=== PATIENT | female | born 1970 | race Caucasian/White ===

== ENCOUNTER 2016-06-25 05:23 | Inpatient (IN) | payer OTHER ==
[2016-06-25] VITALS (37 sets, daily range): BP systolic 79–136; BP diastolic 42–83; PULSE 80–108; RESP 14–33; TEMP 94.7–98.5; O2SAT 80–100
[~2016-06-25] VITALS: Ht 167.6 cm; Wt 59.8 kg
[~2016-06-25 05:23] MED LIST: ALBU0.086 NEB; ATOR10TA PO; BIOT10004 PO; CETI10 PO; FLUO20TA20 PO; KLOR8TAB PO; LORA2TAB PO; METO25 PO; NAPR-576 PO; PROT40TA PO; SYMB80AE INH; SYNT50TA PO; ZOLP10TA3 PO
[2016-06-25] MEDS ORDERED: SODIUM CHLORIDE 0.9% FLUSH 5 ML FLUSH IVF PRN (05:45)
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
[2016-06-25 06:05] LABS: AUTOMATED NEUTROPHIL # 6.8 TH/MM3 (1.8-7.7); BASOPHIL # 0.1 TH/MM3 (0-0.2); BASOPHIL % 1.1 % (0.0-2.0); EOSINOPHIL # 0.1 TH/MM3 (0-0.4); HEMATOCRIT 39.7 % (35.0-46.0); HEMO FLAGS DIFF FINAL; LYMPH % 21.2 % (9.0-44.0); LYMPHOCYTE # 2.1 TH/MM3 (1.0-4.8); MEAN CELL VOLUME 92.6 FL (80.0-100.0); MEAN CORPUSCULAR HEMOGLOBIN 31.2 PG (27.0-34.0); MEAN CORPUSCULAR HGB CONC 33.7 % (32.0-36.0); MONO % 6.2 % (0.0-8.0); NEUT % 70.5 % (16.0-70.0); PLATELET COUNT 246 TH/MM3 (150-450); RED BLOOD COUNT 4.29 MIL/MM3 (4.00-5.30); RED CELL DISTRIBUTION WIDTH 13.2 % (11.6-17.2); WHITE BLOOD COUNT 9.7 TH/MM3 (4.0-11.0)
[2016-06-25 06:07] LABS: BLOOD, URINE TRACE (NEG); GLUCOSE,URINE NEG (NEG); KETONE, URINE NEG (NEG); NITRITE,URINE NEG (NEG)
[2016-06-25 06:18] LABS: AMPHETAMINE, URINE NEG (NEG)
[2016-06-25 06:20] LABS: BARBITURATES, URINE NEG (NEG)
[2016-06-25 06:22] LABS: COCAINE, URINE NEG (NEG)
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
[2016-06-25 06:28] LABS: METHOD OF COLLECTION CLEAN CATCH; URINE COLOR STRAW (YELLW/STRAW)
[2016-06-25 06:29] LABS: COMMENT (UR) CULT NOT INDICATED; CULTURE IF INDICATED CULT NOT INDICATED; SQUAMOUS EPITHELIAL CELL URINE 0-5 /hpf (0-5)
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
[2016-06-25 06:37] LABS: ALKALINE PHOSPHATASE 87 U/L (45-117); ALT (GPT) 27 U/L (10-53); ANION GAP 12 MEQ/L (5-15); AST (GOT) 36 U/L (15-37); BETA HCG QUANT 2 MIU/ML (0-5); BICARBONATE 22.9 MEQ/L (21.0-32.0); BLOOD UREA NITROGEN 4 MG/DL (7-18); CHLORIDE 104 MEQ/L (98-107); GLOMERULAR FILTRATION RATE 88 ML/MIN (>89); MAGNESIUM 5.4 MG/DL (1.5-2.5); SODIUM (NA) 139 MEQ/L (136-145); TOTAL BILIRUBIN ADULT 0.4 MG/DL (0.2-1.0)
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
[2016-06-25 06:45] LABS: POTASSIUM 2.9 MEQ/L (3.5-5.1)
[2016-06-25 07:15] LABS: BLOOD GAS BASE EXCESS -5.3 mmol/L (-2-2); BLOOD GAS CARBOXYHEMOGLOBIN 1.3 % (0-4); BLOOD GAS HCO3 20 mmol/L (22-26); BLOOD GAS METHEMOGLOBIN 1.1 % (0-2); BLOOD GAS O2 HGB SATURATION 86 % (90-100); BLOOD GAS OXYGEN CONTENT 15.3 Vol % (12.0-20.0); BLOOD GAS PCO2 43 mmHG (38-42); BLOOD GAS PO2 64 mmHG (61-120); BLOOD GAS TOTAL HGB 12.7 G/DL (12.0-16.0); TEMP CORR TO 98.6
[2016-06-25 07:16] LABS: CRITICAL VALUE YES; DRAW SITE LT RADIAL; LITER FLOW 6 L/M; NUMBER OF ARTERIAL PUNCTURES 1; OXYGEN DEVICE NASAL CANNULA; STAT YES; ULNAR PULSE PRESENT
[2016-06-25] MEDS: NS + KCL 40 MEQ INJ 1,000 ML IV SCH ×2 (07:46→15:15)
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
[2016-06-25] MEDS ORDERED: MAGNESIUM HYDROXIDE SUSP 30 ML CUP PO PRN (09:45)
[2016-06-25] MEDS ORDERED: MISCELLANEOUS NURSING INFORMATION XX SCH (09:45)
[2016-06-25] MEDS ORDERED: SODIUM CHLORIDE 0.9% FLUSH 5 ML FLUSH IV FLUSH PRN (09:45)
[2016-06-25] MEDS ORDERED: RESP: ALBUTEROL 2.5 MG/IPRATROPIUM 0.5 MG NEB (PRN) INH (09:45)
[2016-06-25] MEDS ORDERED: POTASSIUM CHLOR 40 MEQ PREMIX 100 ML IV PRN ×2 (09:45)
[2016-06-25] MEDS ORDERED: POTASSIUM PHOSPHATE MONOBASIC 500 MG TAB PO PRN (09:45)
[2016-06-25] MEDS ORDERED: SODIUM PHOSPHATE INJ 30 MMOL in SODIUM CHLOR 0.9% 250 ML INJ 240 ML IV PRN (09:45)
[2016-06-25] MEDS ORDERED: CHLORHEXIDINE GLUCONATE 2 % 1 PACK (2 CLOTHS) TOP PRN (09:45)
[2016-06-25] MEDS ORDERED: POTASSIUM CHLOR 20 MEQ PREMIX 100 ML IV PRN ×2 (09:45)
[2016-06-25] MEDS ORDERED: ONDANSETRON HCL 4 MG/2 ML VIAL IV PRN (09:45)
[2016-06-25] MEDS ORDERED: LORazepam 2 MG/ML VIAL IV PRN (09:45)
[2016-06-25] MEDS ORDERED: MAGNESIUM SULFATE INJ 2 GM in SODIUM CHLORIDE 0.9% INJ 96 ML IV PRN (09:45)
[2016-06-25] MEDS ORDERED: POTASSIUM PHOSPHATE MONOBASIC 500 MG TAB PO/TUBE PRN (09:45)
[2016-06-25] MEDS ORDERED: MAGNESIUM SULFATE INJ 4 GM in SODIUM CHLORIDE 0.9% INJ 92 ML IV PRN (09:45)
[2016-06-25] MEDS ORDERED: POTASSIUM PHOSPHATE INJ 30 MMOL in SODIUM CHLOR 0.9% 250 ML INJ 250 ML IV PRN (09:45)
[2016-06-25] MEDS ORDERED: MAGNESIUM OXIDE 400 MG TAB PO PRN (09:45)
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
[2016-06-25] MEDS: RESP: ALBUTEROL 2.5 MG/IPRATROPIUM 0.5 MG NEB (SCH) INH ×3 (11:19→22:04)
[2016-06-25] MEDS: PANTOPRAZOLE SOD 40 MG DELAYED RELEASE TAB PO SCH (12:11)
[2016-06-25] MEDS: PIPERACIL-TAZO 4.5 GM PREMIX 100 ML IV SCH ×2 (12:11→18:00)
[2016-06-25 12:38] LABS: BICARBONATE 23.5 MEQ/L (21.0-32.0); POTASSIUM 3.7 MEQ/L (3.5-5.1)
[2016-06-25 13:23] LABS: HEMOGLOBIN A1b 0.7 %; HEMOGLOBIN Ao 87.4 %; HEMOGLOBIN F 0.8 %; HEMOGLOBIN LA1C 1.8 %
--- NOTE | 2016-06-25 14:22 | EKG ---
Date Performed: 06/25/2016 Time Performed: 07:06:16 PTAGE: 45 years EKG: Sinus rhythm with borderline 1st degree A-V block Consider left atrial abnormality Anterolateral ST-T changes are nonspecific Borderline ECG NO PREVIOUS TRACING DOCTOR: Jean Ibrahim Interpretating Date/Time 06/25/2016 14:19:46
[2016-06-25 14:53] LABS: BLOOD GAS CARBOXYHEMOGLOBIN 1.1 % (0-4); BLOOD GAS HCO3 22 mmol/L (22-26); BLOOD GAS METHEMOGLOBIN 0.6 % (0-2); BLOOD GAS OXYGEN CONTENT 15.7 Vol % (12.0-20.0); BLOOD GAS PCO2 32 mmHg (38-42); BLOOD GAS PO2 75 mmHg (61-120); BLOOD GAS TOTAL HGB 11.7 G/DL (12.0-16.0); CRITICAL VALUE NO; OXYGEN DEVICE NASAL CANNULA
[2016-06-25 14:54] LABS: BLOOD GAS O2 HGB SATURATION 95 % (90-100); DRAW SITE LT RADIAL; LITER FLOW 4 L/M; NUMBER OF ARTERIAL PUNCTURES 1; STAT NO; ULNAR PULSE PRESENT
[2016-06-25] MEDS ORDERED: DEXTROSE 50% IN WATER 50 ML VIAL(D50) IV PUSH PRN (17:00)
[2016-06-25] MEDS ORDERED: INSULIN NovoLIN REGULAR SUPPLEMENTAL SCALE SQ SCH (17:00)
[2016-06-25] MEDS ORDERED: GLUCAGON 1 MG/ML VIAL OTHER PRN (17:00)
[2016-06-25] MEDS: SODIUM CHLOR 0.9% 1000 ML INJ 1,000 ML IV SCH (18:00)
[2016-06-25] MEDS: MULTIVITAMIN TAB PO SCH (18:00)
[2016-06-25] MEDS: FOLIC ACID 1 MG TAB PO SCH (18:00)
[2016-06-25] MEDS: INSULIN NovoLIN REGULAR SUPPLEMENTAL SCALE SQ SCH ×2 (18:00→19:03)
[2016-06-25] MEDS: THIAMINE HCL 100 MG TAB PO SCH (18:00)
[2016-06-25] MEDS ORDERED: LEVO.075 PO (19:46)
[2016-06-25] MEDS ORDERED: METO50TA11 PO (19:46)
[2016-06-25] MEDS ORDERED: LEVO.05 PO (19:46)
[2016-06-25] MEDS: SODIUM CHLORIDE 0.9% FLUSH 5 ML FLUSH IV FLUSH SCH (20:17)
[2016-06-25] MEDS ORDERED: DIPH1TAB36 (20:26)
[2016-06-25] MEDS ORDERED: AMBI10TA PO (20:26)
[2016-06-25] MEDS ORDERED: SODIUM CHLORID 0.9% 500 ML INJ 500 ML IV ONE (22:45)
[2016-06-26] VITALS (20 sets, daily range): BP systolic 81–129; BP diastolic 42–92; PULSE 80–116; RESP 16–28; TEMP 97.3–98.7; O2SAT 93–100
[2016-06-26] MEDS: PIPERACIL-TAZO 4.5 GM PREMIX 100 ML IV SCH ×2 (00:27→06:32)
[2016-06-26] MEDS: SODIUM CHLOR 0.9% 1000 ML INJ 1,000 ML IV SCH (03:14)
[2016-06-26] MEDS: CHLORHEXIDINE GLUCONATE 2 % 1 PACK (2 CLOTHS) TOP SCH (03:14)
[2016-06-26] MEDS: RESP: ALBUTEROL 2.5 MG/IPRATROPIUM 0.5 MG NEB (SCH) INH ×2 (04:09→10:15)
[2016-06-26 05:19] LABS: BASOPHIL # 0.1 TH/MM3 (0-0.2); BASOPHIL % 0.7 % (0.0-2.0); EOSINOPHIL % 0.1 % (0.0-4.0); HEMATOCRIT 31.5 % (35.0-46.0); HEMO FLAGS DIFF FINAL; LYMPH % 13.1 % (9.0-44.0); LYMPHOCYTE # 1.5 TH/MM3 (1.0-4.8); MEAN CELL VOLUME 92.8 FL (80.0-100.0); MEAN CORPUSCULAR HEMOGLOBIN 31.2 PG (27.0-34.0); MEAN CORPUSCULAR HGB CONC 33.7 % (32.0-36.0); MONO % 5.5 % (0.0-8.0); NEUT % 80.6 % (16.0-70.0); PLATELET COUNT 166 TH/MM3 (150-450); RED CELL DISTRIBUTION WIDTH 13.5 % (11.6-17.2); WHITE BLOOD COUNT 11.2 TH/MM3 (4.0-11.0)
[2016-06-26 05:29] LABS: CHLORIDE 107 MEQ/L (98-107); POTASSIUM 3.2 MEQ/L (3.5-5.1); SODIUM (NA) 142 MEQ/L (136-145)
[2016-06-26 05:37] LABS: ALT (GPT) 22 U/L (10-53); ANION GAP 12 MEQ/L (5-15); AST (GOT) 27 U/L (15-37); BICARBONATE 22.8 MEQ/L (21.0-32.0); BLOOD UREA NITROGEN 8 MG/DL (7-18); GLOMERULAR FILTRATION RATE 84 ML/MIN (>89); MAGNESIUM 2.3 MG/DL (1.5-2.5)
[2016-06-26 05:38] LABS: TOTAL BILIRUBIN ADULT 0.8 MG/DL (0.2-1.0)
[2016-06-26 05:51] LABS: ALKALINE PHOSPHATASE 61 U/L (45-117)
[2016-06-26] MEDS: INSULIN NovoLIN REGULAR SUPPLEMENTAL SCALE SQ SCH ×3 (05:57→17:58)
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
[2016-06-26] MEDS ORDERED: POTASSIUM CHLORIDE 10 MEQ CONTROLLED RELEASE TAB PO ONE (07:45)
[2016-06-26] MEDS ORDERED: ZOLPIDEM TARTRATE 10 MG TAB PO PRN (08:30)
[2016-06-26] MEDS: SODIUM CHLORIDE 0.9% FLUSH 5 ML FLUSH IV FLUSH SCH ×2 (09:00→21:18)
[2016-06-26] MEDS ORDERED: LEVOTHYROXINE SODIUM 50 MCG TAB PO SCH (09:00)
[2016-06-26] MEDS: PANTOPRAZOLE SOD 40 MG DELAYED RELEASE TAB PO SCH (09:42)
[2016-06-26] MEDS: FOLIC ACID 1 MG TAB PO SCH (09:42)
[2016-06-26] MEDS: MULTIVITAMIN TAB PO SCH (09:42)
[2016-06-26] MEDS: CLINDAMYCIN 150 MG CAP PO SCH ×3 (09:42→21:18)
[2016-06-26] MEDS: THIAMINE HCL 100 MG TAB PO SCH (09:42)
[2016-06-26] MEDS: FLUoxetine HCL 20 MG CAP PO SCH ×2 (09:42→21:18)
[2016-06-26] MEDS: ACETAMINOPHEN 325 MG TAB PO PRN ×2 (10:01→18:01)
[2016-06-26] MEDS ORDERED: PANT40TA3 PO (14:48)
[2016-06-26] MEDS ORDERED: SYMB80AE INH (14:55)
[2016-06-26] MEDS ORDERED: FLUO40CA PO (14:55)
[2016-06-26] MEDS ORDERED: methylPREDNISolone SOD SUCC 40 MG/1 ML VIAL IV ONE (15:15)
[2016-06-26] MEDS ORDERED: ALBUTEROL SULFATE 90 MCG/ACT HFA 8 GM INHALER INH PRN (15:15)
[2016-06-26] MEDS: BUDESONIDE-FORMOTEROL 80/4.5 MCG INHALER INH SCH ×2 (16:23→21:18)
[2016-06-27] VITALS: BP 148/88; PULSE 95; RESP 20; TEMP 97.1; O2SAT 100
[2016-06-27] MEDS: ACETAMINOPHEN 325 MG TAB PO PRN ×2 (01:10→08:12)
[2016-06-27] MEDS: CHLORHEXIDINE GLUCONATE 2 % 1 PACK (2 CLOTHS) TOP SCH (03:59)
[2016-06-27 04:00] VITALS: BP 147/98; PULSE 92; RESP 20; TEMP 97.2; O2SAT 98
[2016-06-27] MEDS ORDERED: LEVOTHYROXINE SODIUM 50 MCG TAB PO SCH (06:00)
[2016-06-27] MEDS ORDERED: LEVOTHYROXINE SODIUM 25 MCG TAB PO SCH (06:00)
[2016-06-27] MEDS: INSULIN NovoLIN REGULAR SUPPLEMENTAL SCALE SQ SCH ×2 (06:00)
[2016-06-27] MEDS: CLINDAMYCIN 150 MG CAP PO SCH (06:07)
[2016-06-27 06:57] LABS: AUTOMATED NEUTROPHIL # 7.3 TH/MM3 (1.8-7.7); BASOPHIL % 0.3 % (0.0-2.0); EOSINOPHIL % 0.2 % (0.0-4.0); HEMATOCRIT 34.3 % (35.0-46.0); HEMO FLAGS DIFF FINAL; LYMPHOCYTE # 0.6 TH/MM3 (1.0-4.8); MEAN CELL VOLUME 93.4 FL (80.0-100.0); MEAN CORPUSCULAR HEMOGLOBIN 30.7 PG (27.0-34.0); MEAN CORPUSCULAR HGB CONC 32.9 % (32.0-36.0); MONO % 6.1 % (0.0-8.0); NEUT % 86.4 % (16.0-70.0); PLATELET COUNT 183 TH/MM3 (150-450); RED BLOOD COUNT 3.67 MIL/MM3 (4.00-5.30); RED CELL DISTRIBUTION WIDTH 14.1 % (11.6-17.2); WHITE BLOOD COUNT 8.4 TH/MM3 (4.0-11.0)
[2016-06-27 07:02] LABS: BICARBONATE 24.6 MEQ/L (21.0-32.0)
[2016-06-27 08:00] VITALS: BP 158/91; PULSE 60; RESP 18; TEMP 96.9; O2SAT 100
[2016-06-27] MEDS: BUDESONIDE-FORMOTEROL 80/4.5 MCG INHALER INH SCH (08:11)
[2016-06-27] MEDS: PANTOPRAZOLE SOD 40 MG DELAYED RELEASE TAB PO SCH (08:11)
[2016-06-27] MEDS: THIAMINE HCL 100 MG TAB PO SCH (08:11)
[2016-06-27] MEDS: FLUoxetine HCL 20 MG CAP PO SCH (08:11)
[2016-06-27] MEDS: FOLIC ACID 1 MG TAB PO SCH (08:12)
[2016-06-27] MEDS: MULTIVITAMIN TAB PO SCH (08:12)
[2016-06-27] MEDS: SODIUM CHLORIDE 0.9% FLUSH 5 ML FLUSH IV FLUSH SCH (08:12)
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
[2016-06-27] MEDS ORDERED: METO25TA6 PO (08:26)
[2016-06-27] MEDS ORDERED: CLIN150 PO (08:26)
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
[2016-06-29] MEDS ORDERED: LEVOTHYROXINE SODIUM 75 MCG TAB PO SCH (06:00)
== END 2016-06-27 10:30 | disposition home or self-care (01) | DRG 177 ==
LOC: PHED 05:23 → MERGE 07:13 → PHEDA 07:13 → PHICU 08:29 → PH3B 06-26 19:25
PROVIDERS: ADMIT Family Medicine; ATTEND Family Medicine
PROC: 5A09357 Assistance with Respiratory Ventilation, Less than 24 Consecutive Hours, Continuous Positive Airway Pressure (ICD-10-PCS; principal; 2016-06-25)
DX: J69.0 Pneumonitis due to inhalation of food and vomit (principal); J96.01 Acute respiratory failure with hypoxia; S00.83XA Contusion of other part of head, initial encounter; T75.1XXA Unspecified effects of drowning and nonfatal submersion, initial encounter; W17.4XXA Fall from dock, initial encounter; F10.129 Alcohol abuse with intoxication, unspecified; Y90.7 Blood alcohol level of 200-239 mg/100 ml; D64.9 Anemia, unspecified; I10 Essential (primary) hypertension; E03.9 Hypothyroidism, unspecified; E87.6 Hypokalemia; R41.82 Altered mental status, unspecified; R73.9 Hyperglycemia, unspecified
CPT/HCPCS: 36600; 51702; 70450; 71010; 71020; 72125; 80048; 80053; 80307; 81001; 82805; 82948; 83036; 83735; 83880; 84100; 84443; 84702; 85025; 87641; 93005; 94002; 94150; 94640; 94664; J2543; J2920; J3480; J7030; J7040

== ENCOUNTER 2018-05-30 19:09 | Observation (INO) ==
--- NOTE | 2018-05-30 19:39 | ED ---
HPI General Chief complaint: Chest Pain Stated complaint: Chest Pain/Raidiating to Back/Weak Time Seen by Provider: 05/30/18 19:22 Source: patient and family () Mode of arrival: ambulatory Limitations: no limitations History of Present Illness HPI narrative: 47-year-old female with history of hypertension, hyperlipidemia, anxiety, hypothyroidism, here with her for evaluation of chest pain. Pain started in the patient's right shoulder, then migrated to her left shoulder , then began in her chest. Initially the pain was sharp. It is now described as heavy/pressure-like, 7 out of 10, constant, no modifying factors. Patient reports some numbness sensation to her bilateral hands and feet. She reports that she has not been feeling well for the last 3 days and feels like she may have the flu. She has pain in her throat which is greatest on the left side. She has not noticed a fever. No history of DVT or PE. She has had a nonproductive cough. No hemoptysis. No recent travel or immobilization. No known history of CAD. She is here with her and states that he has several medical conditions that have been causing some stress/anxiety on her. Related Data Home Medications Medication Instructions Recorded Confirmed atorvastatin 05/30/18 levothyroxine [Synthroid] 05/30/18 lorazepam [Ativan] 05/30/18 metoprolol tartrate 05/30/18 pantoprazole 05/30/18 Allergies Allergy/AdvReac Type Severity Reaction Status Date / Time amoxicillin Allergy Severe Hives Verified 05/30/18 19:47 clavulanic acid Allergy Severe Hives Verified 05/30/18 19:47 Review of Systems ROS: all other systems reviewed are negative [facility] Medical History Medical History Anxiety (Acute) High cholesterol (Acute) Hypertension (Acute) Hypothyroidism (Acute) Surgical History Surgical History No history of previous surgery (Acute) Social History Social History Substance History: No History of Abuse Smoking Status: Never smoker How Often Do You Have a Drink Containing Alcohol: Never Recent Travel in [facility] within the Last 8 Weeks: No Recent Out of Country Travel within the Last 8 Weeks: No Exam Narrative Exam Narrative: GENERAL: Well-developed, well-nourished, awake, alert, no apparent distress. SKIN: Focused skin assessment warm/dry. HEAD: Atraumatic. Normocephalic. EYES: Pupils equal and round. No scleral icterus. No injection or drainage. ENT: Mucous membranes pink and moist. Mild pharyngeal edema, no exudates. Uvula is midline. Normal phonation. No drooling or stridor. NECK: Trachea midline. No JVD. CARDIOVASCULAR: Tachycardic, rate 105, regular. Distal pulses brisk and equal bilaterally. RESPIRATORY: No accessory muscle use. Clear to auscultation. Breath sounds equal bilaterally. GASTROINTESTINAL: Abdomen soft, non-tender, nondistended. MUSCULOSKELETAL: No obvious deformities. No clubbing. No cyanosis. No edema. NEUROLOGICAL: Awake and alert. No obvious cranial nerve deficits. Motor grossly within normal limits. Normal speech. PSYCHIATRIC: Appropriate mood and affect; insight and judgment normal. Course Initial Documented Vital Signs Temperature 98.4 F 05/30/18 19:21 Pulse Rate 87 05/30/18 19:21 Respiratory Rate 18 05/30/18 19:21 Blood Pressure 154/81 H 05/30/18 19:21 Pulse Oximetry 100 05/30/18 19:21 Last Documented Vital Signs Temperature 98.4 F 05/30/18 19:21 Pulse Rate 95 H 05/30/18 22:16 Respiratory Rate 18 05/30/18 22:16 Blood Pressure 144/95 H 05/30/18 22:16 Pulse Oximetry 100 05/30/18 22:16 Medical Decision Making [facility] Narrative Medical decision making narrative: Vital signs reviewed. CBC is essentially unremarkable. CMP is remarkable for potassium 3.2, sodium 133. Cardiac enzymes are negative. Lipase is 146. D-dimer is negative at 0.26. Chest x-ray: No acute cardiopulmonary disease. UA shows large leukocyte esterase, 6-8 WBCs per HPF, 0-5 epithelial cells per HPF, negative nitrites, culture not indicated. Culture will be obtained. The patient was made aware of all findings. She was provided a full aspirin. She reports that the chest pressure that she was experiencing improved with sublingual nitroglycerin. Patient's cardiac risk factors include hypertension and hypercholesterolemia. She will be admitted to the chest pain center for further cardiac evaluation. 10:10 PM: I was called to the patient's bedside by the patient's who informed me that the patient's heart was racing. On the monitor it appears that the patient was in atrial flutter at a rate of 125. By the time EKG was performed, the patient's rate had improved. Her blood pressure was 144/95 during this episode and O2 saturation was 100% on room air. Repeat EKG was ordered, however the patient's tachycardia resolved at the time of the EKG. The repeat EKG did have some slight ST depressions in inferior and lateral leads. The patient was made aware of all findings. She will be admitted to the chest pain center for further cardiac evaluation. She is amenable to this plan. Case discussed with hospitalist Dr. Goodwin who will admit the patient to the hospitalist service. Medical Screen Exam Complete: Yes Emergency Medical Condition: Yes Differential Diagnosis Differential Diagnosis: ACS, pneumothorax, pericarditis, PE, pneumonia, dissection, anxiety, influenza, musculoskeletal pain Lab Data Result diagrams: 05/30/18 19:29 05/30/18 19:29 Lab Results 05/30/18 05/30/18 05/30/18 Range/Units 19:29 19:29 19:29 CBC w Diff Auto diff final WBC 7.1 (4.0-11.0) th/mm3 RBC 4.03 (4.00-5.30) mil/mm3 Hgb 12.6 (11.6-15.3) gm/dL Hct 37.7 (35.0-46.0) % MCV 93.4 (80.0-100.0) fL MCH 31.3 (27.0-34.0) pg MCHC 33.5 (32.0-36.0) % RDW 12.9 (11.6-17.2) % Plt Count 225 (150-450) th/mm3 MPV 10.7 (7.0-11.0) fL Neut % (Auto) 59.1 (16.0-70.0) % Lymph % (Auto) 26.1 (9.0-44.0) % Ward % (Auto) 6.5 (0.0-8.0) % Eos % (Auto) 7.5 H (0.0-4.0) % Baso % (Auto) 0.8 (0.0-2.0) % Neut # (Auto) 4.1 (1.8-7.7) th/mm3 Lymph # (Auto) 1.9 (1.0-4.8) th/mm3 Ward # (Auto) 0.5 (0.0-0.9) th/mm3 Eos # (Auto) 0.5 H (0.0-0.4) th/mm3 Baso # (Auto) 0.1 (0.0-0.2) th/mm3 WBC Differential . Differential Comment . PT 10.8 (9.8-11.6) sec INR 1.1 Ratio APTT 29.9 (23.4-31.7) sec D-Dimer Quant (PE/DVT) 0.26 (0.00-0.50) mg/L FEU Sodium 133 L (136-145) meq/L Potassium 3.2 L (3.5-5.1) meq/L Chloride 98 (98-107) meq/L Carbon Dioxide 26.8 (21.0-32.0) meq/L Anion Gap 8 (5-15) meq/L BUN 9 (7-18) mg/dL Creatinine 0.85 (0.50-1.00) mg/dL Estimated GFR 71 L (>89) mL/min Random Glucose 153 H (74-106) mg/dL Calcium 8.5 (8.5-10.1) mg/dL Total Bilirubin 0.5 (0.2-1.0) mg/dL AST 21 (15-37) U/L ALT 21 (10-53) U/L Alkaline Phosphatase 89 (45-117) U/L Total Creatine Kinase 138 (26-192) U/L CK-MB (CK-2) 1.0 (0.5-3.6) ng/mL Troponin I Less than 0.02 L (0.02-0.05) ng/mL Total Protein 7.1 (6.4-8.2) g/dL Albumin 4.0 (3.4-5.0) g/dL Lipase 146 (73-393) U/L Beta HCG, Quant 2 (0-5) mIU/mL Urine Color (Yellw/Straw) Urine Clarity (Clear) Urine pH (5.0-8.5) Ur Specific Superior (1.002-1.035) Urine Protein (Neg-Trace) mg/dL Urine Glucose (UA) (Negative) mg/dL Urine Ketones (Negative) mg/dL Urine Occult Blood (Negative) Urine Nitrate (Negative) Urine Bilirubin (Negative) Urine Urobilinogen (Less than 2) mg/dL Ur Leukocyte Esterase (Negative) Urine WBC (0-5) /hpf Ur Squamous Epith Cells (0-5) /hpf Micro UA Comment Ur Microscopic Review Urine Culture Comments 05/30/18 Range/Units 21:00 CBC w Diff WBC (4.0-11.0) th/mm3 RBC (4.00-5.30) mil/mm3 Hgb (11.6-15.3) gm/dL Hct (35.0-46.0) % MCV (80.0-100.0) fL MCH (27.0-34.0) pg MCHC (32.0-36.0) % RDW (11.6-17.2) % Plt Count (150-450) th/mm3 MPV (7.0-11.0) fL Neut % (Auto) (16.0-70.0) % Lymph % (Auto) (9.0-44.0) % Ward % (Auto) (0.0-8.0) % Eos % (Auto) (0.0-4.0) % Baso % (Auto) (0.0-2.0) % Neut # (Auto) (1.8-7.7) th/mm3 Lymph # (Auto) (1.0-4.8) th/mm3 Ward # (Auto) (0.0-0.9) th/mm3 Eos # (Auto) (0.0-0.4) th/mm3 Baso # (Auto) (0.0-0.2) th/mm3 WBC Differential Differential Comment PT (9.8-11.6) sec INR Ratio APTT (23.4-31.7) sec D-Dimer Quant (PE/DVT) (0.00-0.50) mg/L FEU Sodium (136-145) meq/L Potassium (3.5-5.1) meq/L Chloride (98-107) meq/L Carbon Dioxide (21.0-32.0) meq/L Anion Gap (5-15) meq/L BUN (7-18) mg/dL Creatinine (0.50-1.00) mg/dL Estimated GFR (>89) mL/min Random Glucose (74-106) mg/dL Calcium (8.5-10.1) mg/dL Total Bilirubin (0.2-1.0) mg/dL AST (15-37) U/L ALT (10-53) U/L Alkaline Phosphatase (45-117) U/L Total Creatine Kinase (26-192) U/L CK-MB (CK-2) (0.5-3.6) ng/mL Troponin I (0.02-0.05) ng/mL Total Protein (6.4-8.2) g/dL Albumin (3.4-5.0) g/dL Lipase (73-393) U/L Beta HCG, Quant (0-5) mIU/mL Urine Color Yellow (Yellw/Straw) Urine Clarity Clear (Clear) Urine pH 6.0 (5.0-8.5) Ur Specific Superior Less/equal 1.005 (1.002-1.035) Urine Protein Negative (Neg-Trace) mg/dL Urine Glucose (UA) Negative (Negative) mg/dL Urine Ketones Negative (Negative) mg/dL Urine Occult Blood Negative (Negative) Urine Nitrate Negative (Negative) Urine Bilirubin Negative (Negative) Urine Urobilinogen 0.2 (Less than 2) mg/dL Ur Leukocyte Esterase Large H (Negative) Urine WBC 6-8 H (0-5) /hpf Ur Squamous Epith Cells 0-5 (0-5) /hpf Micro UA Comment Culture not ind Ur Microscopic Review Microscopic reviewed Urine Culture Comments Culture not ind Imaging Data Radiologist's impression: Chest X-Ray 05/30/18 19:32 CONCLUSION: 1. No acute cardiopulmonary disease. ECG Data Attestation: I personally reviewed and interpreted this ECG as follows: (EKG: Sinus, rate 88, normal axis, incomplete RBBB, no acute ischemic abnormality, similar to EKG from 06/25/16) Discharge Plan Discharge Disposition Patient Disposition: ED Admit(ED Internal Use Only) Discharge Condition Condition: Stable Discharge Details Diagnosis: Chest pain, Tachyarrhythmia Physicians Team ED Provider: Ranulfo Pike Primary Care Provider: Dorina Perkins Rxs /Orders / Referrals /Forms Prescriptions: No Action atorvastatin 10 mg Tablet RF: 0 levothyroxine [Synthroid] 25 mcg Tablet RF: 0 lorazepam [Ativan] 0.5 mg Tablet RF: 0 pantoprazole 40 mg Tablet,Delayed Release (Dr/Ec) RF: 0 metoprolol tartrate 25 mg Tablet RF: 0 Discharge Instructions Patient Printed Instructions: Chest Pain (ED) Status ED Status: With Doctor
--- NOTE | 2018-05-30 20:00 | XR ---
EXAM DATE: 05/30/2018 7:56 PM EST AGE/SEX: 47 years / Female INDICATIONS: Radiating chest pain. CLINICAL DATA: This is the patient's initial encounter. Patient reports that signs and symptoms have been present for 1 day and indicates a pain score of 7/10. MEDICAL/SURGICAL HISTORY: None. None. COMPARISON: No prior exams available for comparison. FINDINGS: A single AP view of the chest demonstrates the lungs to be symmetrically aerated without evidence of mass, infiltrate or effusion. The cardiomediastinal contours are unremarkable. Osseous structures a re intact. CONCLUSION: 1. No acute cardiopulmonary disease. Electronically signed by: Barry Holland MD Board Certified Radiologist 05/30/2018 7:58 PM EST
[2018-05-30 20:02] LABS: Baso # (Auto) 0.1 th/mm3 (0.0-0.2); Baso % (Auto) 0.8 % (0.0-2.0); Eos # (Auto) 0.5 th/mm3 (0.0-0.4); Eos % (Auto) 7.5 % (0.0-4.0); Hematocrit 37.7 % (35.0-46.0); Hemoglobin 12.6 gm/dL (11.6-15.3); Lymph # (Auto) 1.9 th/mm3 (1.0-4.8); Lymph % (Auto) 26.1 % (9.0-44.0); Mean Corpuscular HGB Conc 33.5 % (32.0-36.0); Mean Corpuscular Hemoglobin 31.3 pg (27.0-34.0); Mean Corpuscular Volume 93.4 fL (80.0-100.0); Mean Platelet Volume 10.7 fL (7.0-11.0); Mono # (Auto) 0.5 th/mm3 (0.0-0.9); Mono % (Auto) 6.5 % (0.0-8.0); Neut # (Auto) 4.1 th/mm3 (1.8-7.7); Neut % (Auto) 59.1 % (16.0-70.0); Platelet Count 225 th/mm3 (150-450); Red Blood Count 4.03 mil/mm3 (4.00-5.30); Red Cell Distribution Width 12.9 % (11.6-17.2); White Blood Count 7.1 th/mm3 (4.0-11.0)
[2018-05-30 20:19] LABS: Chloride 98 meq/L (98-107); Potassium 3.2 meq/L (3.5-5.1); Sodium 133 meq/L (136-145)
[2018-05-30 20:22] LABS: Calcium 8.5 mg/dL (8.5-10.1)
[2018-05-30 20:23] LABS: Anion Gap 8 meq/L (5-15); Blood Urea Nitrogen 9 mg/dL (7-18); Carbon Dioxide 26.8 meq/L (21.0-32.0); Glucose,Random 153 mg/dL (74-106); Lipase 146 U/L (73-393)
[2018-05-30 20:26] LABS: Alanine Aminotransferase 21 U/L (10-53); Aspartate Aminotransferase 21 U/L (15-37); Glomerular Filtration Rate 71 mL/min (>89)
[2018-05-30 20:27] LABS: Total Protein 7.1 g/dL (6.4-8.2)
[2018-05-30 20:28] LABS: Activated Partial Thrombo Time 29.9 sec (23.4-31.7); Alkaline Phosphatase 89 U/L (45-117); Creatine Kinase 138 U/L (26-192); INR 1.1 Ratio; Prothrombin Time 10.8 sec (9.8-11.6)
[2018-05-30 20:31] LABS: Beta HCG,Quantitative 2 mIU/mL (0-5)
[2018-05-30 20:34] LABS: D-Dimer 0.26 mg/L FEU (0.00-0.50)
[2018-05-30 21:36] LABS: Bilirubin,Urine Negative (Negative); Clarity,Urine Clear (Clear); Color,Urine Yellow (Yellw/Straw); Glucose,Urine (UA) Negative (Negative); Leukocyte Esterase,Urine Large (Negative); Nitrite,Urine Negative (Negative); Specific Gravity,Urine Less/Equal 1.005 (1.002-1.035); Urobilinogen,Urine 0.2 mg/dL (Less than 2)
[2018-05-30 21:54] LABS: Squamous Epithelial Cell,Urine 0-5 /hpf (0-5)
--- NOTE | 2018-05-30 22:21 | ECG ---
Date Performed: 05/30/2018 Time Performed: 19:19:25 PTAGE: 47 years EKG: Sinus rhythm INCOMPLETE RIGHT BUNDLE BRANCH BLOCK BORDERLINE ECG Since the PREVIOUS TRACING , no significant change noted DOCTOR: Carola Martin Interpretating Date/Time 05/30/2018 22:20:26
[2018-05-31 00:42] LABS: Creatine Kinase 155 U/L (26-192)
[2018-05-31 03:51] LABS: Creatine Kinase 184 U/L (26-192)
--- NOTE | 2018-05-31 09:30 | P.HPIM ---
History of Present Illness Primary Care Physician: Dorina Perkins MD Chief Complaint: Chest pain History of Present Illness: Is a 47-year-old female patient with a known medical history of hypertension, hyperlipidemia and hypothyroidism who presented to the ED with complaints of chest pain. Patient states that yesterday afternoon while she was driving she developed a right-sided chest pain that was stabbing in nature and radiated down her right arm, several minutes later the pain radiated to her left arm and midsternal chest that was stabbing in nature, she states that the pain was rated a 7 out of 10 at its worst, was constant and associated with heaviness. She denies any associated nausea, vomiting, sweating or shortness of breath with the pain. She states that the pain continued over an hour or so and improved with the use of nitroglycerin in the ED. She denies any known aggravating factors of the pain. She does state that she has been feeling under the weather the last few days, overall fatigued as well as a nonproductive cough and sore throat. Patient denies any recent fever, chills, headache, abdominal pain, nausea, vomiting, diarrhea or dysuria. Denies any recent antibiotic use or use of over-the- counter cold medicines. She denies any new changes to her medications. She does take levothyroxine for hypothyroidism but has not had a recent TSH checked. Patient does state that she had a stress test roughly 3 years ago at [facility] for similar complaints and at that time the chest pain resolved and the stress test was negative. 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 Patient's family history is significant for cardiovascular disease in her father's side. Review of Systems Review of Systems: all other systems reviewed are negative [facility] Medical History Medical History Anxiety (Acute) High cholesterol (Acute) Hypertension (Acute) Hypothyroidism (Acute) Surgical History Surgical History No history of previous surgery (Acute) Family History Family History Other Cardiovascular disease Social History Social History Substance History: No History of Abuse Second Hand Smoke Exposure: No Smoking Status: Never smoker How Often Do You Have a Drink Containing Alcohol: 2 to 4 times a month Recent Travel in [place] within the Last 8 Weeks: No Recent Out of Country Travel within the Last 8 Weeks: No Immunization History Tetanus Immunization: Unsure Medications and Allergies Allergies Allergy/AdvReac Type Severity Reaction Status Date / Time amoxicillin Allergy Severe Hives Verified 05/30/18 19:47 clavulanic acid Allergy Severe Hives Verified 05/30/18 19:47 Home Medications Medication Instructions Recorded Confirmed Type atorvastatin 10 mg DAILY 05/30/18 05/31/18 History levothyroxine [Synthroid] 25 mcg PO DAILY 05/30/18 05/31/18 History lorazepam [Ativan] 1 mg PO BID PRN MDD 2mg 05/30/18 05/31/18 History metoprolol tartrate 25 mg PO DAILY 05/30/18 05/31/18 History pantoprazole 40 mg PO DAILY 05/30/18 05/31/18 History Active Medications: Active Medications Sodium Chloride (Ns Flush) 2 ml IV.FLUSH UNSCH PRN PRN Reason: FLUSH AFTER USING IV ACCESS Sodium Chloride (Ns Flush) 2 ml IV.FLUSH BID DENNIS Sodium Chloride (Ns Flush) 2 ml IV.FLUSH PRN PRN PRN Reason: FLUSH AFTER USING IV ACCESS Physical Exam Vital signs: Vital Signs 05/30/18 19:21 05/30/18 19:34 05/30/18 19:50 Temperature 98.4 F Pulse Rate 87 87 91 H Respiratory Rate 18 20 Blood Pressure 154/81 H 130/79 Pulse Oximetry 100 100 100 05/30/18 20:46 05/30/18 21:20 05/30/18 22:16 Temperature Pulse Rate 80 82 95 H Respiratory Rate 20 20 18 Blood Pressure 119/75 111/74 144/95 H Pulse Oximetry 100 98 100 05/30/18 23:01 05/31/18 00:00 05/31/18 04:00 Temperature 97.5 F L 97.0 F L Pulse Rate 72 97 H 82 Respiratory Rate 20 20 22 Blood Pressure 114/68 114/71 100/58 L Pulse Oximetry 99 98 97 05/31/18 08:00 Temperature Pulse Rate Respiratory Rate Blood Pressure Pulse Oximetry 99 Intake & Output 05/30/18 05/31/18 05/31/18 18:59 06:59 18:59 Weight 57.3 kg Other: # Voids 3 Weight On Admission 57.3 kg Narrative: GENERAL: Well-developed, well-nourished patient in NAD. SKIN: Warm and dry. No rash. HEAD: Normocephalic. Atraumatic. EYES: Pupils equal and round. No scleral icterus. No injection or drainage. ENT: No nasal bleeding or discharge. Mucous membranes pink and moist. NECK: Supple. Trachea midline. CARDIOVASCULAR: Regular rate and rhythm. S1, S2 noted. No murmur appreciated. No reproducible chest pain to palpation. RESPIRATORY: No accessory muscle use. Clear to auscultation. Breath sounds equal bilaterally. GASTROINTESTINAL: Abdomen soft, non-tender, nondistended. Normoactive bowel sounds x4. MUSCULOSKELETAL: No obvious deformities. Extremities without clubbing, cyanosis , or edema. NEUROLOGICAL: Awake and alert. No obvious cranial nerve deficits. Motor grossly within normal limits. 5/5 muscle strength in bilateral upper and lower extremities. Normal speech. PSYCHIATRIC: Appropriate mood and affect; insight and judgment normal. Results Labs CBC & Chem 7: 05/30/18 19:29 05/30/18 19:29 Imaging Impressions Chest X-Ray 05/30/18 19:32 CONCLUSION: 1. No acute cardiopulmonary disease. Caprini VTE Risk Assessment Caprini VTE Risk Assessment: No/Low Risk (score <= 1) Caprini Risk Assessment Model: Point Value = 1 Point Value = 2 Point Value = 3 Point Value = 5 Age 41-60 Minor surgery BMI > 25 kg/m2 Swollen legs Varicose veins or History of unexplained or recurrent spontaneous Oral contraceptives or hormone replacement Sepsis (< 1 month) Serious lung disease, including pneumonia (< 1 month) Abnormal pulmonary function Acute myocardial infarction Congestive heart failure (< 1 month) History of inflammatory bowel disease Medical patient at bed rest Age 61-74 Arthroscopic surgery Major open surgery (> 45 min) Laparoscopic surgery (> 45 min) Malignancy Confined to bed (> 72 hours) Immobilizing plaster cast Central venous access Age >= 75 History of VTE Family history of VTE Factor V Leiden Prothrombin [id number] Lupus anticoagulant Anticardiolipin antibodies Elevated serum homocysteine Heparin-induced thrombocytopenia Other congenital or acquired thrombophilia Stroke (< 1 month) Elective arthroplasty Hip, pelvis, or leg fracture Acute spinal cord injury (< 1 month) Prophylaxis Regimen: Total Risk Factor Score Risk Level Prophylaxis Regimen 0-1 Low Early ambulation 2 Moderate Order ONE of the following: *Sequential Compression Device (SCD) *Heparin 5000 units SQ BID 3-4 Higher Order ONE of the following medications: *Heparin 5000 units SQ TID *Enoxaparin/Lovenox 40 mg SQ daily (WT < 150 kg, CrCl > 30 mL/min) *Enoxaparin/Lovenox 30 mg SQ daily (WT < 150 kg, CrCl > 10-29 mL/min) *Enoxaparin/Lovenox 30 mg SQ BID (WT < 150 kg, CrCl > 30 mL/min) AND/OR *Sequential Compression Device (SCD) 5 or more Highest Order ONE of the following medications: *Heparin 5000 units SQ TID (Preferred with Epidurals) *Enoxaparin/Lovenox 40 mg SQ daily (WT < 150 kg, CrCl > 30 mL/min) *Enoxaparin/Lovenox 30 mg SQ daily (WT < 150 kg, CrCl > 10-29 mL/min) *Enoxaparin/Lovenox 30 mg SQ BID (WT < 150 kg, CrCl > 30 mL/min) AND *Sequential Compression Device (SCD) Assessment and Plan Plan This is a 47-year-old female patient with no medical history of hypertension and hyperlipidemia, hypothyroidism and anxiety presented to the ED with complaints of chest pain. Chest pain Patient has been admitted the chest pain center for observation. Serial EKGs and serial troponins have been ordered for ruling out ACS purposes. Troponin trend flat. EKG reviewed showing normal sinus rhythm with incomplete right bundle branch block no ST changes noted. Patient continue on cardiac telemetry, monitor for any arrhythmias. None overnight. Checks x-ray reviewed showing no acute cardiopulmonary disease. CBC and BMP reviewed, essentially unremarkable. Patient's risk factors for CAD include hypertension, family history and hyperlipidemia. ACS has been ruled out with serial EKGs and serial troponins, patient will undergo a myocardial perfusion scan to further rule out any ischemia. Patient is stable at this time and agreeable to plan. Further hospitalization and treatment plan will depend on myocardial perfusion scan results. Hypertension Will continue home medications. Monitor blood pressure trends. Hyperlipidemia Will continue home statin. Hypothyroidism Will continue levothyroxine. Check a TSH. DVT prophylaxis: SCDs. D/w patient, bedside RN and Dr. crowley. H&P: Quality VTE Deep Vein Thrombosis/Pulmonary Embolism Present on Admission: No
[2018-05-31] MEDS ORDERED: LORazepam 1 MG Tablet PO PRN (09:50)
[2018-05-31] MEDS ORDERED: Regadenoson Inj 0.4 MG/5 ML Syringe IV.PUSH ONE (09:51)
[2018-05-31] MEDS ORDERED: Metoprolol Tartrate 25 MG Tablet PO SCH (10:00)
[2018-05-31 10:19] VITALS: RESP 20
[2018-05-31] MEDS ORDERED: Ciprofloxacin 250 MG Tablet PO SCH (12:00)
[2018-05-31 13:15] VITALS: BP 111/60; PULSE 63; TEMP 96.7; O2SAT 95
--- NOTE | 2018-05-31 14:22 | NM ---
EXAM DATE: 05/31/2018 1:45 PM EST AGE/SEX: 47 years / Female INDICATIONS:Angina. . Substernal chest pain. CLINICAL DATA: This is the patient's initial encounter. Patient reports that signs and symptoms have been present for 1 day and indicates a pain score of 5/10. MEDICAL/SURGICAL HISTORY: Hypertension. Hypothyroidism. None. COMPARISON: No prior exams available for comparison. DOSE: 8.4 mCi Tc 99m Myoview at rest 25.4 mCi [id number] at stress 0.4 mg Lexiscan STRESS SYMPTOMS: Dyspnea, chest and abdominal pressure, tingling and nausea. EJECTION FRACTION: 69 % TECHNIQUE: The patient underwent pharmacologic stress with infusion of prescribed dose. Continuous ECG tracing was monitored during stress. Gated SPECT imaging was performed after stress and conventi onal SPECT imaging was performed at rest. The examination was performed on a SPECT/CT scanner, both attenuation and non-corrected datasets were reviewed. FINDINGS: Distribution: The maximum perfused segment at stress is in the lateral wall. Perfusion Study: The pattern of perfusion at stress is within normal limits. Gated Study: There are intact wall motion and wall thickening without hypokinetic or dyskinetic segm ents. The ejection fraction is calculated at 69%. RISK CATEGORY: Low (<1% Annual Mortality Rate) CONCLUSION: No reversible perfusion defects. No focal wall motion abnormality. Electronically signed by: Aureliano Mckeon MD Board Certified Radiologist 05/31/2018 2:21 PM EST
--- NOTE | 2018-05-31 15:05 | TR ---
Date Performed: 05/31/2018 Time Performed: 13:03:12 DOCTOR: Duke Frederick DRUG LIST: CLINICAL HISTORY: REASON FOR TEST: Chest pain REASON FOR ENDING: OBSERVATION: CONCLUSION: COMMENTS: Lexiscan stress test was performed under standard four minute protocol. Radionuclide was injected one minute prior to ending the test. No electrocardiographic abormalities were present t o suggest ischemia. Nuclear imaging and interpretation are pending.
--- NOTE | 2018-05-31 18:22 | ECG ---
Date Performed: 05/31/2018 Time Performed: 02:15:59 PTAGE: 47 years EKG: Sinus rhythm POSSIBLE RIGHT VENTRICULAR CONDUCTION DELAY BORDERLINE ECG PREVIOUS TRACING : 05/30/2018 22.17 Since the previous tracing, no significant change noted DOCTOR: Carola Martin Interpretating Date/Time 05/31/2018 18:21:40
--- NOTE | 2018-05-31 20:53 | ECG ---
Date Performed: 05/30/2018 Time Performed: 22:17:53 PTAGE: 47 years EKG: Sinus rhythm POSSIBLE RIGHT VENTRICULAR CONDUCTION DELAY MINIMAL ST DEPRESSION BORDERLINE ECG Since the PREVIOUS TRACING , no significant change noted DOCTOR: Carola Martin Interpretating Date/Time 05/31/2018 20:52:01
== END 2018-05-31 17:12 | disposition home or self-care (01) ==
LOC: PHEDA 19:09 → PHED 19:09 → PH3 23:42
PROVIDERS: ADMIT Hospitalist; ATTEND Hospitalist
DX: E03.9 Hypothyroidism, unspecified; I20.9 Angina pectoris, unspecified; F41.9 Anxiety disorder, unspecified; E78.5 Hyperlipidemia, unspecified; I45.10 Unspecified right bundle-branch block; I10 Essential (primary) hypertension; R07.89 Other chest pain
CPT/HCPCS: 71010; 71045; 78452; 80053; 81001; 82550; 82552; 83690; 84443; 84484; 84702; 85025; 85379; 85610; 85730; 87086; 87275; 87276; 87804; 93005; 93017; 99285; A9502; G0378; J2785; Q9969